=== PATIENT | male | born 1980 | race Caucasian/White ===

== ENCOUNTER 2018-10-29 09:20 | Inpatient (IN) ==
[2018-10-29] MEDS ORDERED: NICOTINE GUM BUCCAL PRN (11:02)
[2018-10-29] MEDS ORDERED: TUBERSOL ID ONE (11:02)
[2018-10-29] MEDS ORDERED: DESYREL PO PRN (11:02)
[2018-10-29] MEDS ORDERED: ZOFRAN IM PRN (11:02)
[2018-10-29] MEDS ORDERED: ZOFRAN IV PRN (11:02)
[2018-10-29] MEDS ORDERED: DULCOLAX PR PRN (11:02)
[2018-10-29] MEDS ORDERED: NICODERM PATCH TD PRN (11:02)
[2018-10-29] MEDS ORDERED: D5W 1,000 ML IV PRN (11:02)
[2018-10-29] MEDS ORDERED: SENOKOT PO PRN (11:02)
[2018-10-29] MEDS ORDERED: PHENOBARBITAL IV PRN (11:02)
[2018-10-29] MEDS ORDERED: ZOFRAN ODT PO PRN (11:02)
[2018-10-29] MEDS ORDERED: MOTRIN PO PRN (11:02)
[2018-10-29] MEDS ORDERED: MAALOX PLUS LIQUID PO PRN (11:02)
[2018-10-29] MEDS ORDERED: IMODIUM PO PRN ×2 (11:02)
[2018-10-29 11:43] LABS: AMYLASE 55 U/L (20-200); LIPASE 48 U/L (13-60)
[2018-10-29] MEDS ORDERED: SALINE LOCK IV FLUID XX ONE (11:47)
[2018-10-29] MEDS ORDERED: BENTYL PO PRN (11:47)
[2018-10-29 12:20] LABS: UR AMPHETAMINES QUAL PRESUMPTIVE POSITIVE (NONE DETECT); UR BARBITUATES QUAL NONE DETECTED (NONE DETECT); UR BENZODIAZEPIN QUAL PRESUMPTIVE POSITIVE (NONE DETECT); UR CANNABINOIDS QUAL NONE DETECTED (NONE DETECT); UR COCAINE QUAL NONE DETECTED (NONE DETECT); UR METHADONE QUAL NONE DETECTED (NONE DETECT); UR METHAMPHETAMINE QUAL PRESUMPTIVE POSITIVE (NONE DETECT); UR OPIATES QUAL NONE DETECTED (NONE DETECT); UR OXYCODONE QUAL NONE DETECTED (NONE DETECT); UR PCP QUAL NONE DETECTED (NONE DETECT); UR PROPOXYPHENE QUAL NONE DETECTED (NONE DETECT); UR TCA QUAL NONE DETECTED (NONE DETECT)
[2018-10-29 12:50] LABS: URINE SOURCE VOIDED
[2018-10-29 12:51] LABS: BILIRUBIN URINE NEGATIVE (NEGATIVE); BLOOD URINE NEGATIVE (NEGATIVE); CLARITY CLEAR (CLEAR); COLOR AMBER; GLUCOSE URINE NEGATIVE (NEGATIVE); KETONE URINE TRACE mg/dL (NEGATIVE); LEUKOCYTES URINE TRACE (NEGATIVE); NITRITE URINE NEGATIVE (NEGATIVE); PH URINE 6.5; PROTEIN URINE 1+(30 mg/dL) mg/dL (NEGATIVE); UROBILINOGEN URINE 4 mg/dL
[2018-10-29 12:55] LABS: URINE EPITHELIAL CELLS <10 /HPF (<10); URINE WBC <10 /HPF (<10)
[2018-10-29] MEDS: ATARAX PO PRN (13:20)
[2018-10-29] MEDS: LIBRIUM PO SCH ×2 (13:20→19:07)
[2018-10-29] MEDS ORDERED: M.V.I.-12 10 ML, FOLIC ACID 1 MG, MAGNESIUM SULFATE 1 GM, THIAMINE 100 MG in NS 1,000 ML IV ONE (14:00)
[2018-10-29] MEDS: REQUIP PO SCH (21:26)
[2018-10-29] MEDS: ASPIRIN EC PO SCH (21:27)
[2018-10-29] MEDS: ZOCOR PO SCH (21:27)
[2018-10-29] MEDS: SEROQUEL PO PRN (21:34)
[2018-10-30] MEDS: LIBRIUM PO SCH ×4 (00:07→20:52)
--- NOTE | 2018-10-30 02:32 | HISTORY AND PHYSICAL ---
CHIEF COMPLAINT: Nausea. HISTORY OF PRESENT ILLNESS: The patient is a 38-year-old male who [facility] secondary to nausea, vomiting, abdominal pain. States he has been using and abusing benzodiazepines. States he has been on them for quite some time secondary to anxiety, stress and PTSD. However, as of late he has been overtaking them. SOCIAL HISTORY: He is . He is currently employed. Lives at home in [place]. PAST MEDICAL HISTORY: History of stroke in 2017 that was felt to be related to testosterone injections. States he took Keppra for several months due to a seizure that occurred 7 days after his stroke, but then has recently stopped. He has a history of pericardial effusion in 2008. Has history of chronic anxiety. MEDICATIONS: Viibryd 40, Plavix 75, aspirin 81, Zocor 20, Requip 0.5, Klonopin 0.5 one to three tabs at bedtime by prescription and Ativan 1 mg twice a day. ALLERGIES: No known drug allergies. REVIEW OF SYSTEMS: CIWA score is 15 secondary to nausea, vomiting, abdominal pain, paroxysmal sweating, moderate to severe anxiety, mild tremors, headaches, history of seizures. Denies any chest pain, palpitations. Denies any fevers or chills. Denies any dysuria, urinary frequency, urgency, hesitancy. Denies polyuria or polydipsia. SUBSTANCE ABUSE HISTORY: The patient went to [place] at age 22 for 28 days, went to a [place] at age 24 for 28 days. He was actually in [place] at age 17 as well. He started drinking alcohol at age 20. Currently he hardly ever drinks. Started marijuana at age 16 and has not used since 2007. Started depressants at age 35, currently has been overtaking up to 5 to 6 mg of Ativan and 3 to 4 mg of Klonopin a day. Started opiates at age 28, currently does not use. Started NyQuil at age 38, currently drinking 5 bottles every 5 to 7 days. Started steroids at age 38 and has not been using recently. FAMILY HISTORY: Noncontributory. PHYSICAL EXAMINATION: VITAL SIGNS: Reviewed and stable. GENERAL: Patient is awake, alert, currently in no respiratory distress. He is pleasant to talk with. HEENT: Normocephalic. NECK: Supple. CARDIOVASCULAR: Regular rate. No murmurs. CHEST: Clear and nonlabored. ABDOMEN: Soft, nondistended, nontender. EXTREMITIES: Moves all extremities. NEUROLOGIC: No focal changes. SKIN: Warm, dry. No rashes. LABS: Pending. ASSESSMENT: 1. Nausea and vomiting. 2. Abdominal pain. 3. Myalgias. 4. Paresthesias. 5. Paroxysmal sweating. 6. Benzodiazepine abuse and stabilization. PLAN: We will admit patient to the hospital, place on high-dose Librium taper, begin counseling, continue his other home medications with the exception of benzodiazepine and we will follow. cc: Villa Swartz MD
[2018-10-30] MEDS: PROTONIX PO SCH ×2 (05:50→06:00)
[2018-10-30] MEDS: VITAMIN B-1 PO SCH (08:33)
[2018-10-30] MEDS: PLAVIX PO SCH (08:33)
[2018-10-30] MEDS: THERA M PLUS PO SCH (08:33)
[2018-10-30] MEDS: VIIBRYD PO SCH (08:33)
[2018-10-30] MEDS: FOLIC ACID PO SCH (08:33)
[2018-10-30] MEDS: REQUIP PO SCH ×3 (20:51→21:00)
[2018-10-30] MEDS: ATARAX PO PRN (20:53)
[2018-10-30] MEDS: ASPIRIN EC PO SCH (20:53)
[2018-10-30] MEDS: ZOCOR PO SCH (20:54)
[2018-10-30] MEDS: SEROQUEL PO PRN (21:00)
--- NOTE | 2018-10-30 23:41 | PROGRESS NOTE ---
DATE: 10/30/2018 SUBJECTIVE: Patient notes he is feeling tremendously better this morning. Denies any nausea, vomiting, abdominal pain. Denies any fevers or chills. PHYSICAL EXAMINATION: Vital Signs: Reviewed and stable. General: He is awake, alert, oriented. HEENT: Normocephalic, atraumatic. ADE. Neck: Supple. No JVD. Cardiovascular: Regular rate. No murmurs. Chest: Clear and nonlabored. Abdomen: Soft, nondistended. Extremities: Moves all extremities. ASSESSMENT: 1. Nausea and vomiting. 2. Abdominal pain. 3. Myalgias. 4. Paresthesias. 5. Paroxysmal sweating. 6. Polysubstance use and abuse. PLAN: We will continue patient in the hospital. Continue taper. Continue counseling. Further orders as needed. cc: Villa Swartz MD
[2018-10-31] MEDS: LIBRIUM PO SCH ×4 (04:59→16:19)
[2018-10-31] MEDS: VIIBRYD PO SCH (08:57)
[2018-10-31] MEDS: FOLIC ACID PO SCH (08:57)
[2018-10-31] MEDS: PLAVIX PO SCH (08:57)
[2018-10-31] MEDS: THERA M PLUS PO SCH (08:57)
[2018-10-31] MEDS: VITAMIN B-1 PO SCH (08:57)
[2018-10-31] MEDS: TYLENOL PO PRN ×2 (12:33→21:32)
[2018-10-31] MEDS: ROBAXIN PO PRN ×2 (16:18→21:40)
[2018-10-31] MEDS: PROTONIX PO SCH (16:20)
--- NOTE | 2018-10-31 19:14 | PROGRESS NOTE ---
DATE: 10/31/2018 SUBJECTIVE: Patient overall notes that he is feeling much better. He is still having lots of withdrawal symptoms, but these are improving. Denies any chest pain or palpitations. OBJECTIVE: Vital Signs: Reviewed. He is awake, alert. He is in no distress. Blood pressure is stable. Heart rate is stable. He is afebrile. General: Patient is lying in bed talking with his . HEENT: Normocephalic. Neck: Supple. Cardiovascular: Regular rate. Chest: Relatively clear and nonlabored. No crackles. No wheezing. Abdomen: Soft, nondistended. Extremities: Moves all extremities. Neurologic: No focal changes. ASSESSMENT: 1. Nausea, vomiting, abdominal pain. 2. Myalgias. 3. Paresthesias. 4. Paroxysmal sweating. 5. Polysubstance use and abuse. 6. Chronic anxiety. PLAN: Will continue patient in the hospital. TIME SPENT: Thirty-five minutes was spent today in counseling he and his regarding the patient [*] medication following overuse of medications. Discussed patient he needs to avoid all persons, places and situations, he needs outpatient life counseling, etc. cc: Villa Swartz MD
[2018-10-31] MEDS: ASPIRIN EC PO SCH (21:06)
[2018-10-31] MEDS: REQUIP PO SCH (21:06)
[2018-10-31] MEDS: ZOCOR PO SCH (21:06)
[2018-10-31] MEDS: SEROQUEL PO PRN (21:32)
[2018-11-01] MEDS: ROBAXIN PO PRN (04:29)
[2018-11-01] MEDS: TYLENOL PO PRN ×2 (04:29→08:48)
[2018-11-01 04:42] VITALS: BP 140/74
[2018-11-01] MEDS: LIBRIUM PO SCH ×3 (08:45→09:46)
[2018-11-01] MEDS: THERA M PLUS PO SCH (08:45)
[2018-11-01] MEDS: VIIBRYD PO SCH (08:45)
[2018-11-01] MEDS: FOLIC ACID PO SCH (08:45)
[2018-11-01] MEDS: PLAVIX PO SCH (08:45)
[2018-11-01] MEDS: VITAMIN B-1 PO SCH (08:45)
[2018-11-01] MEDS: PROTONIX PO SCH ×2 (08:48→09:48)
== END 2018-11-01 10:53 | disposition home or self-care (01) | DRG 392 ==
LOC: P.DIRADM 10:15 → P.MEDSURG 10:29
PROVIDERS: ADMIT Family Medicine; ATTEND Family Medicine
CPT/HCPCS: 80104; 80301; 80305; 80307; 80320; 81001; 82055; 82150; 83690; 86580; A9270; G0431; G0434; G0477; G0480; G6040; J3411; J3475; J7030